=== PATIENT | male | born 1960 | race Caucasian/White ===

== ENCOUNTER → 2016-09-18 | Outpatient (REF) ==
--- NOTE | 2016-09-18 14:19 | DI ---
EXAM: CHEST FRONTAL AND LATERAL VIEWS HISTORY: Screening, [employer]. COMPARISON: 09/11/2014 FINDINGS: Heart size and mediastinal contour remain within normal limits. No acute infiltrates ar e seen. There is no consolidation, visible pleural fluid or pneumothorax. Bones reveal no acute fra cture. IMPRESSION: No suspicious pulmonary opacities or noticeable change since previous exam.
== END ==
LOC: RAD 13:14
DX: Z02.89 Encounter for other administrative examinations (principal)

== ENCOUNTER → 2017-09-07 | Outpatient (REF) ==
--- NOTE | 2017-09-07 12:43 | DI ---
EXAM: Chest two view, frontal and lateral views. HISTORY: Employment screening. COMPARISON: 09/18/2016. FINDINGS: The heart size is normal. There is no pulmonary vascular congestion. The lungs are clear . No pleural effusion or pneumothorax is seen. No acute osseous abnormality identified. Since the prior study, there has been no significant interval change. IMPRESSION: No acute cardiopulmonary process.
== END ==
LOC: RAD 11:09
PROVIDERS: ATTEND Nurse Practitioner Family
DX: Z02.89 Encounter for other administrative examinations (principal)